=== PATIENT | male | born 1935 | race Caucasian/White ===

== ENCOUNTER 2016-09-01 09:02 | Inpatient (IN) | payer MEDICARE ==
[~2016-09-01] VITALS: Ht 190.5 cm; Wt 85.5 kg
[2016-09-01 09:18] VITALS: BP 111/67; PULSE 79; TEMP 97.8
[2016-09-01] MEDS ORDERED: VITAMINC1000TA PO (10:50)
[2016-09-01] MEDS ORDERED: CALCIUM CARBON650 M2 PO (10:52)
[2016-09-01] MEDS ORDERED: CARTIA XT120 MG PO (10:53)
[2016-09-01] MEDS ORDERED: LANOXIN 0.120.125 MG PO (10:54)
[2016-09-01] MEDS ORDERED: GLUCOSAMINE & C1 TAB PO (10:55)
[2016-09-01] MEDS ORDERED: LASIX 20MG TABL20 MG PO (10:55)
[2016-09-01] MEDS ORDERED: MULTIPLE VITAMI1 CAP PO (10:56)
[2016-09-01] MEDS ORDERED: OMEGA-3 FISH1000 MG PO (10:57)
[2016-09-01] MEDS ORDERED: ZOCOR 40MG40 MG PO (10:58)
[2016-09-01] MEDS ORDERED: COUMADIN4 MG PO (11:00)
[2016-09-01 11:11] LABS: BASO % 0.4 % (0.0-2.0); EOS # 0.1 (0.0-0.7); EOS % 1.1 % (0-4.0); GRAN # 3.7 (1.4-6.5); GRAN % 69.7 % (42.2-75.2); HEMATOCRIT 44.3 % (42.0-52.0); HEMOGLOBIN 14.3 g/dl (13.5-18.0); LYMPH # 0.9 (1.2-3.4); LYMPH % 17.4 % (20.0-51.0); MEAN CELL VOLUME 88 fl (80.0-100.0); MEAN CORPUSCULAR HEMOGLOBIN 28 pg (27.0-31.0); MEAN CORPUSCULAR HGB CONC 32 g/dl (33.0-37.0); MEAN PLATELET VOLUME 9.8 fl (7.4-10.4); MONO # 0.6 (0.1-0.6); PLATELET COUNT 175 K/mm3 (130-400); RED BLOOD COUNT 5.03 M/mm3 (4.20-5.60); WHITE BLOOD COUNT 5.4 K/mm3 (4.8-10.8)
[2016-09-01 11:13] LABS: INR 3.1 (0.8-3.0); PROTHROMBIN TIME 36.1 SECONDS (9.7-12.8)
[2016-09-01 11:23] LABS: ADJUSTED CALCIUM 9.6 mg/dL (8.4-10.2); ALBUMIN 3.8 gm/dL (3.5-5.0); BILIRUBIN,TOTAL 0.9 mg/dL (0.0-1.0); CALCIUM 9.4 mg/dL (8.4-10.2); CREATININE, serum 1.11 mg/dL (0.66-1.25); MAGNESIUM 1.9 mg/dL (1.6-2.3); POTASSIUM 4.2 mmol/L (3.4-5.0); TOTAL PROTEIN 6.6 gm/dL (6.4-8.2)
[2016-09-01 14:03] VITALS: BP 138/79; PULSE 82
[2016-09-01 17:56] VITALS: BP 125/79; PULSE 45
[2016-09-01 21:35] VITALS: BP 129/84; PULSE 58; TEMP 97.6
[2016-09-02 02:12] VITALS: BP 110/57; PULSE 49; TEMP 97.8
[2016-09-02 05:43] VITALS: BP 117/66; PULSE 70; TEMP 97.2
[2016-09-02 09:39] VITALS: BP 102/63; PULSE 88; TEMP 97.5
[2016-09-02 14:29] VITALS: BP 108/70; PULSE 70; TEMP 97.6
[2016-09-02 21:00] VITALS: BP 103/64; PULSE 80; TEMP 98.3
[2016-09-03] VITALS (10 sets, daily range): BP systolic 92–124; BP diastolic 54–78; PULSE 5–74; TEMP 97.7–98.3
[2016-09-03] MEDS ORDERED: BETAPACE 80MG80 MG PO (13:18)
== END 2016-09-03 14:58 | disposition home or self-care (01) | DRG 310 ==
LOC: SURG 09:02 → MEDICAL 09:02
PROVIDERS: Internal Medicine Cardiovascular Disease
PROC: 5A2204Z Restoration of Cardiac Rhythm, Single (ICD-10-PCS; principal; 2016-09-03)
DX: I48.0 Paroxysmal atrial fibrillation (principal); E78.5 Hyperlipidemia, unspecified; Z79.01 Long term (current) use of anticoagulants
CPT/HCPCS: J2250; J3010; J7030

== ENCOUNTER 2019-06-20 06:48 | Day surgery (SDC) | payer MEDICARE ==
[2019-06-20] VITALS (7 sets, daily range): BP systolic 117–179; BP diastolic 65–95; PULSE 42–72; TEMP 97.9–98.5
[~2019-06-20] VITALS: Ht 190.5 cm; Wt 90.9 kg
[~2019-06-20 06:48] MED LIST: BETAPACE 80MG80 MG PO; CALCIUM CARBON650 M2 PO; CARTIA XT120 MG PO; COUMADIN 3MG3 MG/TAB PO; GLUCOSAMINE & C1 TAB PO; LANOXIN 0.120.125 MG PO; LASIX 20MG TABL20 MG PO; MULTIPLE VITAMI1 CAP PO; OMEGA-3 FISH1000 MG PO; VITAMINC1000TA PO; ZOCOR 20MG20 MG PO
[2019-06-20] MEDS ORDERED: ASPIRIN E.C. 8181 MG PO (07:24)
[2019-06-20] MEDS ORDERED: MIRALAX PA17 GM/Dose PO (07:25)
[2019-06-20] MEDS ORDERED: TYLENOL 325MG325 MG PO (07:25)
[2019-06-20 08:03] LABS: HEMATOCRIT 42.4 % (42.0-52.0); HEMOGLOBIN 13.6 g/dl (13.5-18.0); MEAN CELL VOLUME 90 fl (80.0-100.0); MEAN CORPUSCULAR HEMOGLOBIN 29 pg (27.0-31.0); MEAN CORPUSCULAR HGB CONC 32 g/dl (33.0-37.0); MEAN PLATELET VOLUME 9.5 fl (7.4-10.4); PLATELET COUNT 196 K/mm3 (130-400); REDCELL DISTRIBUTION WIDTH-CV 14.7 % (11.5-14.5)
[2019-06-20 08:12] LABS: INR 1.5 (0.8-3.0); PROTHROMBIN TIME 17.5 SECONDS (9.7-12.8)
[2019-06-20 08:13] LABS: CALCIUM 9.4 mg/dL (8.4-10.2); CREATININE, serum 0.88 (0.66-1.25); POTASSIUM 4.6 mmol/L (3.4-5.0)
--- NOTE | 2019-06-20 09:17 | NUR ---
SEE MERGE FOR MEDICATION ADMINISTRATION TIMES AND INTRA AND POST SEDATION ASSESSMENTS.
--- NOTE | 2019-06-20 17:42 | NUR ---
Patient arrived to room after having pacemaker placed. He is alert and oriented when arriving. Was able to ambulate to bed from stretcher with steady gait. Left arm is in sling, was provided with ice to incision site. Did state site was a little sore but the ice was taking care of the pain. Was reminded to keep arm in sling and reminded of limited movements. Was provided with ice water per his request. Lungs are clear. HR is regular. Bowel sounds are active x4. No edema to BLEs. Pedal and radial pusles are palpable. Is independent in room, continent of bowel and bladder. Incision site is clean, dry and intact.
--- NOTE | 2019-06-20 19:25 | NUR ---
Patient assessed at this time. Alert and oriented x 4, and able to make needs known. Denies having pain and discomfort at this time. Peripheral IV to right forearm. Denies SOB and dyspnea. LS CTA. Respirations even and unlabored. HRR. Capillary refill less than 3 seconds. Non-tenting skin turgor. Telemetry in place. Dressing to pacemaker site is CDI. Sling to left arm. BSAx4. Abdomen soft and non-tender. No edema. Voices no questions, needs, or concerns at this time. Resting in bed with call light within reach. Ice to pacemaker site.
[2019-06-21 00:33] VITALS: BP 131/75; PULSE 60; TEMP 98.2
[2019-06-21 03:56] VITALS: BP 137/80; PULSE 59; TEMP 98.5
--- NOTE | 2019-06-21 04:28 | NUR ---
Patient has been resting in bed with sling to left arm throughout the night. Has denied having pain and discomfort. Resting in bed with call light within reach.
[2019-06-21 06:34] LABS: BASO % 0.5 % (0.0-2.0); EOS # 0.1 (0.0-0.7); EOS % 1.8 % (0-4.0); GRAN # 4.1 (1.4-6.5); GRAN % 66.4 % (42.2-75.2); HEMATOCRIT 43.1 % (42.0-52.0); HEMOGLOBIN 13.9 g/dl (13.5-18.0); LYMPH # 1.2 (1.2-3.4); LYMPH % 18.9 % (20.0-51.0); MEAN CELL VOLUME 91 fl (80.0-100.0); MEAN CORPUSCULAR HEMOGLOBIN 29 pg (27.0-31.0); MEAN CORPUSCULAR HGB CONC 32 g/dl (33.0-37.0); MEAN PLATELET VOLUME 9.7 fl (7.4-10.4); MONO # 0.7 (0.1-0.6); MONO % 11.9 % (1.7-9.3); PLATELET COUNT 180 K/mm3 (130-400); RED BLOOD COUNT 4.74 M/mm3 (4.20-5.60); REDCELL DISTRIBUTION WIDTH-CV 14.8 % (11.5-14.5)
[2019-06-21 06:49] LABS: CREATININE, serum 0.85 (0.66-1.25); POTASSIUM 4.5 mmol/L (3.4-5.0)
[2019-06-21 07:50] VITALS: BP 127/62; PULSE 61; TEMP 98.7
--- NOTE | 2019-06-21 08:06 | NUR ---
Pt assessment complete. Pt is sitting up in bed upon entry, he is A/O x4. His breathing is even and unlabored on RA. Pt denies SOB. Pain /10, denies need for intervention. LUE in sling. Site CDI. No hematoma visualized. Pt denies N/V. POC discussed with patient who verbalized understanding. No needs at this time. Call light within reach.
--- NOTE | 2019-06-21 12:11 | NUR ---
First visit from the silk examiner. No needs right now.
[2019-06-21 13:00] VITALS: BP 158/77; PULSE 67; TEMP 97.9
[2019-06-21] MEDS ORDERED: CEPHALEXIN500 M1 PO (13:11)
--- NOTE | 2019-06-21 14:22 | NUR ---
The patient discharged before an initial intake could be completed.
--- NOTE | 2019-06-21 14:46 | NUR ---
Discharge paperwork and instructions reviewed with patient. All questions answered at this time. IV to RFA dc'd catheter tip intact. Sent home with pacemaker booklet, attempted to contact [facility] to have discharge instructions. Will call patient with further details. Pt walked out at this time.
--- NOTE | 2019-06-21 15:14 | NUR ---
Called and updated patient on device use and needs post discharge.
== END 2019-06-21 15:15 | disposition home or self-care (01) ==
LOC: COL.CAR 06:48 → MEDICAL 12:15 → COL.CAR 06-21 15:15
PROVIDERS: Internal Medicine Cardiovascular Disease; Nurse Practitioner
DX: I49.5 Sick sinus syndrome (principal); I48.91 Unspecified atrial fibrillation; G47.33 Obstructive sleep apnea (adult) (pediatric); F17.210 Nicotine dependence, cigarettes, uncomplicated; I48.0 Paroxysmal atrial fibrillation; Z79.01 Long term (current) use of anticoagulants; Z79.899 Other long term (current) drug therapy; Z79.82 Long term (current) use of aspirin
CPT/HCPCS: OP; C1769; C1785; C1894; C1898; J0690; J2250; J3010; J7030